=== PATIENT | female | born 1990 | race African-American/Black ===

== ENCOUNTER 2016-03-22 16:27 | Inpatient (IN) | payer MEDICAID, OTHER ==
[~2016-03-22] VITALS: Ht 152.4 cm; Wt 46.1 kg
[~2016-03-22 16:27] MED LIST: Z.0.NO CURRENT MEDS
[2016-03-22 16:29] VITALS: BP 138/74; PULSE 127; RESP 16; TEMP 99.2; O2SAT 93
[2016-03-22] MEDS ORDERED: VENTAER INH (17:21)
[2016-03-22] MEDS ORDERED: predniSONE 20 MG TAB PO ONE (17:45)
[2016-03-22] MEDS ORDERED: RESP: ALBUTEROL 2.5 MG/IPRATROPIUM 0.5 MG NEB (SCH) INH ONE (17:45)
[2016-03-22] MEDS: RESP: ALBUTEROL 2.5 MG/IPRATROPIUM 0.5 MG NEB (SCH) INH ×2 (17:50→18:01)
--- NOTE | 2016-03-22 17:51 | PD ---
HPI Chief Complaint: Respiratory Distress Time Seen by Provider: 17:51 Travel History International Travel<30 days: No Contact w/Intl Traveler<30days: No Traveled to known affect area: No History of Present Illness HPI 25-year-old female, with history of asthma, presents to the emergency department with complaint of asthma exacerbation that she cannot get under control. She has been using her albuterol inhaler with no improvement in symptoms. She reports chest tightness and shortness of breath. Reports being sick since yesterday with nasal congestion, sore throat, cough. Denies hemoptysis. Reports feeling feverish but has not taken her temperature at home. Was told that she had 102 fever in the ER. Denies lump in throat, difficulty swallowing, unusual drooling. Reports painful swallowing. Reports burning sensation in the back of her throat. Does not taken any medications or tried any other treatments to alleviate her symptoms other than her albuterol inhaler. No known allergies. History of asthma. No other modifying factors or associated signs and symptoms. PFSH Past Medical History Asthma: Yes Autoimmune Disease: No Blood Disorders: No Anxiety: No Depression: No Cardiovascular Problems: No Diminished Hearing: No Genitourinary: No Musculoskeletal: No Neurologic: No Psychiatric: No Respiratory: Yes Sickle Cell Disease: No : 1 Para: 1 Miscarriage: 0 : 0 Past Surgical History Abdominal Surgery: Yes () Section: Yes Other Surgery: No Social History Alcohol Use: No Tobacco Use: No Substance Use: No Allergies-Medications (Allergen,Severity, Reaction): Coded Allergies: No Known Allergies (Verified , 03/22/16) Reported Meds & Prescriptions Reported Meds & Active Scripts Active Reported Ventolin Hfa 18 GM Inh (Albuterol Sulfate) 90 Mcg/Act Aer 2 Puff INH Q4-6H PRN Review of Systems Except as stated in HPI: all other systems reviewed are Neg Physical Exam Narrative GENERAL: Well-nourished, well-developed patient, in no acute distress; febrile SKIN: Warm and dry. HEAD: Atraumatic. Normocephalic. EYES: Pupils equal and round. No scleral icterus. No injection or drainage. ENT: Mucosa pink and moist. Oropharynx with erythema and tonsils 1+; without exudates. No uvular edema. No uvular, palatal, or tonsillar deviation. Airway patent. Nares without nasal blood, purulent drainage or septal hematoma. EARS: Bilateral pinnae and external canals appear within normal limits. Bilateral tympanic membranes without erythema, dullness or perforation. NECK: Trachea midline. No lymphadenopathy. CARDIOVASCULAR: Tachycardic rate and rhythm 120 to 130's. No murmur appreciated. RESPIRATORY: With tachypnea approximately 30bpm and suprasternal retractions. No accessory muscle use. Lungs with diffuse Wheezing throughout to auscultation. Breath sounds equal bilaterally. With Audible wheezing noted. Unable to speak in full sentences secondary to shortness of breath. GASTROINTESTINAL: Abdomen soft, non-tender, nondistended. Hepatic and splenic margins not palpable. Bowel sounds are active 4 quadrants. MUSCULOSKELETAL: No obvious deformities. No clubbing. No cyanosis. No edema. NEUROLOGICAL: Awake and alert. Oriented 3. No obvious cranial nerve deficits. Motor grossly within normal limits. Normal speech. Moves all extremities. 5/5 strength to all extremities. PSYCHIATRIC: Appropriate mood and affect; insight and judgment normal. Data Data Last Documented VS Vital Signs Date Time Temp Pulse Resp B/P Pulse Ox O2 Delivery O2 Flow Rate FiO2 03/22/16 20:47 98.4 03/22/16 20:34 120 19 108/70 99 Room Air Orders Prednisone (Deltasone) (03/22/16 17:45) Albuterol-Ipratropium Neb (Duoneb Neb) (03/22/16 17:45) Albuterol-Ipratropium Neb (Duoneb Neb) (03/22/16 17:45) Influenzae A/B Antigen (03/22/16 17:49) Group A Rapid Strep Screen (03/22/16 17:49) Chest, Single Ap (03/22/16 18:22) Albuterol Neb (Albuterol Neb) (03/22/16 18:30) Blood Culture (03/22/16 18:27) Basic Metabolic Panel (Bmp) (03/22/16 18:27) Complete Blood Count With Diff (03/22/16 18:27) Lactic Acid (03/22/16 18:27) Iv Access Insert/Monitor (03/22/16 18:27) Ecg Monitoring (03/22/16 18:27) Oximetry (03/22/16 18:27) Sodium Chlor 0.9% 1000 Ml Inj (Ns 1000 M (03/22/16 18:27) Sodium Chloride 0.9% Flush (Ns Flush) (03/22/16 18:30) Ibuprofen (Motrin) (03/22/16 19:00) Strep Culture (Group A) (03/22/16 18:30) Azithromycin Inj (Zithromax Inj) (03/22/16 19:15) Ceftriaxone Inj (Rocephin Inj) (03/22/16 19:15) Sodium Chlor 0.9% 1000 Ml Inj (Ns 1000 M (03/22/16 19:09) Urinalysis - C+S If Indicated (03/22/16 19:19) Beta Hcg (Quant/Titer) (03/22/16 19:19) Magnesium Sulfate 1 Gm Premix (Magnesium (03/22/16 20:30) Albuterol Neb (Albuterol Neb) (03/22/16 20:30) Potassium Chloride (Kcl) (03/22/16 20:30) Acetaminophen (Tylenol) (03/22/16 20:30) Ondansetron Inj (Zofran Inj) (03/22/16 20:30) Ct Pulmonary Angiogram (03/22/16 20:24) Ct Abd/Pel W Iv Contrast(Rout) (03/22/16 20:24) Morphine Inj (Morphine Inj) (03/22/16 20:30) Hepatic Functional Panel (03/22/16 20:25) Iohexol 350 Inj (Omnipaque 350 Inj) (03/22/16 21:39) Sodium Chlor 0.9% 1000 Ml Inj (Ns 1000 M (03/22/16 22:30) Admit To Inpatient (03/22/16 ) Vital Signs (Adult) Q4H (03/22/16 22:39) Activity Oob Ad Estefanía (03/22/16 22:39) Machine Cutter / Telemetry .CONTINUOUS (03/22/16 22:39) Diet Heart Healthy (03/23/16 Breakfast) Sodium Chlor 0.9% 1000 Ml Inj (Ns 1000 M (03/22/16 22:39) Sodium Chloride 0.9% Flush (Ns Flush) (03/22/16 22:45) Sodium Chloride 0.9% Flush (Ns Flush) (03/23/16 09:00) Basic Metabolic Panel (Bmp) (03/23/16 06:00) Complete Blood Count With Diff (03/23/16 06:00) Resp Oxygen Delta C Titrat 1-4 L (03/22/16 ) Pt Request For Service (03/22/16 22:39) Enoxaparin Inj (Lovenox Inj) (03/23/16 09:00) Naloxone Inj (Narcan Inj) (03/22/16 22:45) Inpatient Certification (03/22/16 ) Ipratropium Neb (Atrovent Neb) (03/23/16 00:00) Ipratropium Neb (Atrovent Neb) (03/22/16 22:45) Admit Order (Ed Use Only) (03/22/16 22:42) Ceftriaxone Inj (Rocephin Inj) (03/23/16 20:00) Azithromycin (Zithromax) (03/23/16 09:00) Labs Laboratory Tests Test 03/22/16 03/22/16 03/22/16 03/22/16 19:15 19:24 19:25 19:45 Sodium Level 138 MEQ/L Potassium Level 2.9 MEQ/L Chloride Level 106 MEQ/L Carbon Dioxide Level 23.8 MEQ/L Anion Gap 8 MEQ/L Blood Urea Nitrogen 14 MG/DL Creatinine 0.91 MG/DL Estimat Glomerular Filtration 91 ML/MIN Rate Random Glucose 128 MG/DL Calcium Level 8.5 MG/DL Total Bilirubin 0.3 MG/DL Direct Bilirubin 0.1 MG/DL Indirect Bilirubin 0.2 MG/DL Aspartate Amino Transf 15 U/L (AST/SGOT) Alanine Aminotransferase 17 U/L (ALT/SGPT) Alkaline Phosphatase 66 U/L Total Protein 7.9 GM/DL Albumin 3.9 GM/DL Human Chorionic Gonadotropin, LESS THAN 1 Quant MIU/ML Lactic Acid Level 3.0 mmol/L White Blood Count 11.3 TH/MM3 Red Blood Count 3.55 MIL/MM3 Hemoglobin 11.0 GM/DL Hematocrit 31.7 % Mean Corpuscular Volume 89.4 FL Mean Corpuscular Hemoglobin 31.0 PG Mean Corpuscular Hemoglobin 34.6 % Concent Red Cell Distribution Width 17.0 % Platelet Count 240 TH/MM3 Mean Platelet Volume 8.4 FL Neutrophils (%) (Auto) 82.2 % Lymphocytes (%) (Auto) 8.8 % Monocytes (%) (Auto) 5.1 % Eosinophils (%) (Auto) 3.5 % Basophils (%) (Auto) 0.4 % Neutrophils # (Auto) 9.3 TH/MM3 Lymphocytes # (Auto) 1.0 TH/MM3 Monocytes # (Auto) 0.6 TH/MM3 Eosinophils # (Auto) 0.4 TH/MM3 Basophils # (Auto) 0.0 TH/MM3 CBC Comment DIFF FINAL Differential Comment Urine Color YELLOW Urine Turbidity CLEAR Urine pH 7.0 Urine Specific [place] 1.025 Urine Protein TRACE mg/dL Urine Glucose (UA) NEG mg/dL Urine Ketones 40 mg/dL Urine Occult Blood MOD Urine Nitrite NEG Urine Bilirubin NEG Urine Urobilinogen 2.0 MG/DL Urine Leukocyte Esterase NEG Urine RBC 14 /hpf Urine WBC 3 /hpf Urine Squamous Epithelial 1 /hpf Cells Urine Mucus FEW /lpf Microscopic Urinalysis Comment CULT NOT INDICATED MDM Medical Decision Making Medical Screen Exam Complete: Yes Emergency Medical Condition: Yes Medical Record Reviewed: Yes Differential Diagnosis Asthma exacerbation, influenza, strep pharyngitis, pneumonia Narrative Course 25-year-old female with history of asthma with asthma exacerbation. Patient is unable to complete full sentences secondary to shortness of breath on physical exam. She is having retractions and tachypnea. She is diaphoretic. Heart rate is 120s to 130s. Respiratory called bedside and DuoNeb 3 administered. Deltasone 40 mg by mouth administered. Influenza and rapid strep ordered. 1824: On reexamination the patient continues to be to And heart rate in the 140s. Lungs are with diffuse wheezing throughout. Patient reports continued chest tightness and shortness of breath. 1825. I spoke with Dr. Esquivel, my attending physician, and he agreed with my plan of care and recommended blood cultures, lactic acid, labs, albuterol nebulizers, and IV fluids. IV site obtained. Labs ordered. Chest x-ray ordered. Normal saline IV fluid bolus ordered. Albuterol nebulizers 3 ordered. 1849: Temp recheck 100.1. Ibuprofen ordered. 1903: Negative for influenza. Negative rapid strep. 1904: Chest x-ray concludes Minimal subsegmental air space disease at the left lung base. Azithromycin IV and Rocephin IV ordered. 1909: Dr. Esquivel updated on patient status and assumed patient care at this time. See his note for patient disposition. Diagnosis Primary Impression: Asthma with severe exacerbation Additional Impression: Pneumonia Qualified Code: J18.1 - Pneumonia of left lower lobe due to infectious organism Med/Other Pt SpecificInfo: Prescription(s) given Karissa Alonso Mar 22, 2016 17:51
[2016-03-22] MEDS ORDERED: SODIUM CHLOR 0.9% 1000 ML INJ 1,000 ML IV SCH (18:27)
[2016-03-22 18:30] VITALS: PULSE 146; RESP 26; TEMP 100.1; O2SAT 96
[2016-03-22] MEDS ORDERED: SODIUM CHLORIDE 0.9% FLUSH 5 ML FLUSH IVF PRN (18:30)
[2016-03-22] MEDS: RESP: ALBUTEROL 2.5 MG/3 ML NEB (SCH) INH ×3 (18:51→19:06)
--- NOTE | 2016-03-22 18:54 | RADRPT ---
EXAM DATE/TIME: 03/22/2016 16:32 [facility] COMPARISON: No previous studies available for comparison. INDICATIONS : Shortness of breath since last night. MEDICAL HISTORY : Asthma. SURGICAL HISTORY : None. ENCOUNTER: Initial ACUITY: 2 days PAIN SCORE: 0/10 LOCATION: Bilateral chest FINDINGS: A single view of the chest demonstrates minimal subsegmental left basilar airspace disease that could represent atelectasis or mild bronchopneumonia. Right lung clear. No effusion. No pneumothorax. Hear t size normal. CONCLUSION: 1. Minimal subsegmental air space disease at the left lung base. Don Gomez MD on March 22, 2016 at 18:51 Board Certified Radiologist. This report was verified electronically.
[2016-03-22] MEDS ORDERED: IBUPROFEN 800 MG TAB PO ONE (19:00)
[2016-03-22] MEDS ORDERED: SODIUM CHLOR 0.9% 1000 ML INJ 1,000 ML IV ONE ×2 (19:09→22:30)
[2016-03-22] MEDS ORDERED: cefTRIAXone INJ 1,000 MG in SODIUM CHLORIDE 0.9% INJ 100 ML IV ONE (19:15)
[2016-03-22] MEDS ORDERED: AZITHROMYCIN INJ 500 MG in SODIUM CHLOR 0.9% 250 ML INJ 250 ML IV ONE (19:15)
[2016-03-22 19:29] VITALS: O2SAT 97
[2016-03-22 19:30] VITALS: BP 112/63; PULSE 130; RESP 28; TEMP 101.1; O2SAT 97
[2016-03-22 19:44] LABS: AUTOMATED NEUTROPHIL # 9.3 TH/MM3 (1.8-7.7); BASOPHIL % 0.4 % (0.0-2.0); EOSINOPHIL # 0.4 TH/MM3 (0-0.4); EOSINOPHIL % 3.5 % (0.0-4.0); HEMATOCRIT 31.7 % (35.0-46.0); HEMO FLAGS DIFF FINAL; LYMPH % 8.8 % (9.0-44.0); MEAN CELL VOLUME 89.4 FL (80.0-100.0); MEAN CORPUSCULAR HGB CONC 34.6 % (32.0-36.0); MONO % 5.1 % (0.0-8.0); NEUT % 82.2 % (16.0-70.0); PLATELET COUNT 240 TH/MM3 (150-450); RED BLOOD COUNT 3.55 MIL/MM3 (4.00-5.30); WHITE BLOOD COUNT 11.3 TH/MM3 (4.0-11.0)
[2016-03-22 20:07] LABS: BLOOD, URINE MOD (NEG); COMMENT (UR) CULT NOT INDICATED; CULTURE IF INDICATED CULT NOT INDICATED; GLUCOSE,URINE NEG (NEG); KETONE, URINE 40 mg/dL (NEG); MUCUS URINE FEW /lpf (OCC); NITRITE,URINE NEG (NEG); SQUAMOUS EPITHELIAL CELL URINE 1 /hpf (0-5); URINE COLOR YELLOW (YELLW/STRAW)
[2016-03-22 20:08] LABS: BICARBONATE 23.8 MEQ/L (21.0-32.0)
[2016-03-22 20:11] LABS: POTASSIUM 2.9 MEQ/L (3.5-5.1)
--- NOTE | 2016-03-22 20:21 | PD ---
Data Data Last Documented VS Vital Signs Date Time Temp Pulse Resp B/P Pulse Ox O2 Delivery O2 Flow Rate FiO2 03/22/16 20:47 98.4 03/22/16 20:34 120 19 108/70 99 Room Air Orders Prednisone (Deltasone) (03/22/16 17:45) Albuterol-Ipratropium Neb (Duoneb Neb) (03/22/16 17:45) Albuterol-Ipratropium Neb (Duoneb Neb) (03/22/16 17:45) Influenzae A/B Antigen (03/22/16 17:49) Group A Rapid Strep Screen (03/22/16 17:49) Chest, Single Ap (03/22/16 18:22) Albuterol Neb (Albuterol Neb) (03/22/16 18:30) Blood Culture (03/22/16 18:27) Basic Metabolic Panel (Bmp) (03/22/16 18:27) Complete Blood Count With Diff (03/22/16 18:27) Lactic Acid (03/22/16 18:27) Iv Access Insert/Monitor (03/22/16 18:27) Ecg Monitoring (03/22/16 18:27) Oximetry (03/22/16 18:27) Sodium Chlor 0.9% 1000 Ml Inj (Ns 1000 M (03/22/16 18:27) Sodium Chloride 0.9% Flush (Ns Flush) (03/22/16 18:30) Ibuprofen (Motrin) (03/22/16 19:00) Strep Culture (Group A) (03/22/16 18:30) Azithromycin Inj (Zithromax Inj) (03/22/16 19:15) Ceftriaxone Inj (Rocephin Inj) (03/22/16 19:15) Sodium Chlor 0.9% 1000 Ml Inj (Ns 1000 M (03/22/16 19:09) Urinalysis - C+S If Indicated (03/22/16 19:19) Beta Hcg (Quant/Titer) (03/22/16 19:19) Magnesium Sulfate 1 Gm Premix (Magnesium (03/22/16 20:30) Albuterol Neb (Albuterol Neb) (03/22/16 20:30) Potassium Chloride (Kcl) (03/22/16 20:30) Acetaminophen (Tylenol) (2/7/17 20:30) Ondansetron Inj (Zofran Inj) (03/22/16 20:30) Ct Pulmonary Angiogram (03/22/16 20:24) Ct Abd/Pel W Iv Contrast(Rout) (03/22/16 20:24) Morphine Inj (Morphine Inj) (03/22/16 20:30) Hepatic Functional Panel (03/22/16 20:25) Iohexol 350 Inj (Omnipaque 350 Inj) (03/22/16 21:39) Sodium Chlor 0.9% 1000 Ml Inj (Ns 1000 M (03/22/16 22:30) Labs Laboratory Tests Test 03/22/16 03/22/16 03/22/16 03/22/16 19:15 19:24 19:25 19:45 Sodium Level 138 MEQ/L Potassium Level 2.9 MEQ/L Chloride Level 106 MEQ/L Carbon Dioxide Level 23.8 MEQ/L Anion Gap 8 MEQ/L Blood Urea Nitrogen 14 MG/DL Creatinine 0.91 MG/DL Estimat Glomerular Filtration 91 ML/MIN Rate Random Glucose 128 MG/DL Calcium Level 8.5 MG/DL Human Chorionic Gonadotropin, LESS THAN 1 Quant MIU/ML Lactic Acid Level 3.0 mmol/L White Blood Count 11.3 TH/MM3 Red Blood Count 3.55 MIL/MM3 Hemoglobin 11.0 GM/DL Hematocrit 31.7 % Mean Corpuscular Volume 89.4 FL Mean Corpuscular Hemoglobin 31.0 PG Mean Corpuscular Hemoglobin 34.6 % Concent Red Cell Distribution Width 17.0 % Platelet Count 240 TH/MM3 Mean Platelet Volume 8.4 FL Neutrophils (%) (Auto) 82.2 % Lymphocytes (%) (Auto) 8.8 % Monocytes (%) (Auto) 5.1 % Eosinophils (%) (Auto) 3.5 % Basophils (%) (Auto) 0.4 % Neutrophils # (Auto) 9.3 TH/MM3 Lymphocytes # (Auto) 1.0 TH/MM3 Monocytes # (Auto) 0.6 TH/MM3 Eosinophils # (Auto) 0.4 TH/MM3 Basophils # (Auto) 0.0 TH/MM3 CBC Comment DIFF FINAL Differential Comment Urine Color YELLOW Urine Turbidity CLEAR Urine pH 7.0 Urine Specific [place] 1.025 Urine Protein TRACE mg/dL Urine Glucose (UA) NEG mg/dL Urine Ketones 40 mg/dL Urine Occult Blood MOD Urine Nitrite NEG Urine Bilirubin NEG Urine Urobilinogen 2.0 MG/DL Urine Leukocyte Esterase NEG Urine RBC 14 /hpf Urine WBC 3 /hpf Urine Squamous Epithelial 1 /hpf Cells Urine Mucus FEW /lpf Microscopic Urinalysis Comment CULT NOT INDICATED MDM Supervised Visit with SHAHRIAR: Yes Narrative Course I, Dr. Esquivel, have reviewed the advance practice practitioner's documentation and am in agreement, met with the patient face to face, made the diagnosis, and the medical decision making was done by me. See her note for further details. This is a 25-year-old female with history of asthma who was initially brought to [facility] for evaluation of shortness of breath/asthma exacerbation. She was treated by my nurse practitioner with 3 DuoNeb treatments and oral prednisone. The patient's symptoms did not improve and she was given 3 more albuterol treatments. She was noted to be febrile, so labs, influenza, and chest x-ray were ordered. Upon my assessment of the patient she was receiving her third albuterol treatment and was still wheezing. She did however state that she was feeling a lot better than when she first arrived. Initial vital signs show heart rate 127, blood pressure 138/74, pulse ox 93% on room air, oral temp of 99.2F. CBC is remarkable for WBC 11.3, hemoglobin 11, hematocrit 31.7, platelets 240, neutrophils 82%. BMP is remarkable for potassium 2.9 which was replaced orally. Lactic acid is 3.0. Urine shows 40 ketones, moderate occult blood, not suggestive of UTI. Chest x-ray shows minimal subsegmental airspace disease at the left lung base. Influenza is negative. Patient was made aware of all findings and although is feeling better, is still wheezing. She was given 2 L of normal saline, however her heart rate remains elevated in the 120s. She was also given IV Rocephin and azithromycin. She will be admitted for further treatment and evaluation of bronchopneumonia, asthma exacerbation. 8:20 PM: After a call was placed to have the patient admitted, she had an episode of vomiting, and afterwards started to complain of severe right upper quadrant abdominal pain that is sharp. She is mildly tender in this area. She remains tachycardic. CT pulmonary angiogram ordered to rule out PE as well as CT abdomen pelvis to rule out an intra-abdominal infection. CT pulmonary angiogram: CONCLUSION: 1. Negative for pulmonary embolus. 2. Mild groundglass opacity anterior segment right upper lobe most characteristic of a mild bronchopneumonia. 3. Mucoid impaction in several lower lobe bronchi on the right with peribronchial thickening and some mild cylindrical bronchiectasis. Findings are likely infectious in nature. CT abdomen pelvis: No acute findings identified within the abdomen and pelvis. Again the patient was given IV Rocephin and azithromycin. Blood cultures sent prior to antibiotic administration. She will be admitted for further treatment and evaluation of sepsis, asthma exacerbation, bronchopneumonia. Case discussed with hospitalist Dr. Rivera who will admit the patient to her service. Critical Care Narrative Aggregate critical care time was 35 minutes. Time to perform other separately billable procedures was not included in the critical care time. My time did not include minutes spent treating any other patients simultaneously or on activities that did not directly contribute to the patient's treatment. The services I provided to this patient were to treat and/or prevent clinically significant deterioration that could result in: , permanent disability, respiratory failure, worsening clinical condition, septic shock I provided critical care services requiring my management, as noted below: Chart data review, documentation time, medication orders and management, vital sign assessments/reviewing monitor data, ordering and reviewing lab tests, ordering and interpreting/reviewing x-rays and diagnostic studies, care of the patient and discussion of the patient with the admitting physicians. Diagnosis Primary Impression: Sepsis Qualified Code: A41.9 - Sepsis, due to unspecified organism Additional Impressions: Asthma with severe exacerbation Bronchopneumonia Admitting Information Admitting Physician Requests: Admit Jonathon Esquivel MD Mar 22, 2016 20:21
[2016-03-22] MEDS ORDERED: RESP: ALBUTEROL 2.5 MG/3 ML NEB (SCH) INH ONE (20:30)
[2016-03-22] MEDS ORDERED: ONDANSETRON HCL 4 MG/2 ML VIAL IV PUSH ONE (20:30)
[2016-03-22] MEDS ORDERED: ACETAMINOPHEN 325 MG TAB PO ONE (20:30)
[2016-03-22] MEDS ORDERED: MORPHINE SULFATE 4 MG/ML INJ IV PUSH ONE (20:30)
[2016-03-22] MEDS ORDERED: POTASSIUM CHLORIDE 20 MEQ CONTROLLED RELEASE TAB PO ONE (20:30)
[2016-03-22 20:34] VITALS: BP 108/70; PULSE 120; RESP 19; O2SAT 99
[2016-03-22 20:47] VITALS: TEMP 98.4
[2016-03-22 20:50] LABS: BETA HCG QUANT LESS THAN 1 MIU/ML (0-5)
[2016-03-22] MEDS: MAGNESIUM SULFATE 1 GM PREMIX 100 ML IV SCH ×2 (21:24→23:04)
[2016-03-22] MEDS ORDERED: IOHEXOL 350 MG/ML 10 ML VIAL (for RAD DIAG) IV ONE (21:39)
--- NOTE | 2016-03-22 22:21 | RADRPT ---
EXAM DATE/TIME: 03/22/2016 21:32 [facility] COMPARISON: No previous studies available for comparison. INDICATIONS : Shortness of breath and lower right chest pain. IV CONTRAST: 70 cc Omnipaque 350 (iohexol) IV ; Cumulative dose for multiple exams. RADIATION DOSE: 21.26 CTDIvol (mGy) MEDICAL HISTORY : Asthma. SURGICAL HISTORY : None. ENCOUNTER: Initial ACUITY: 1 day PAIN SCALE: 6/10 LOCATION: Right lower chest TECHNIQUE: Volumetric scanning of the chest was performed using a pulmonary embolism protocol MIP images were re constructed. Using automated exposure control and adjustment of the mA and/or kV according to patien t size, radiation dose was kept as low as reasonably achievable to obtain optimal diagnostic quality images. FINDINGS: No filling defects in the pulmonary arteries to suggest pulmonary embolus. There is some groundglass opacity in the anterior aspect of the right upper lobe most characteristic of a mild bronchopneumonia . Also minimal ground glass opacity left upper lobe. In the right lower lobe segmental bronchi there is peribronchial thickening and scattered mucoid plugging of the airways. This is probably infectious in nature. There is also mild cylindrical bronchiectasis No pleural or pericardial effusion. No adenopathy. No acute findings in the upper abdomen. CONCLUSION: 1. Negative for pulmonary embolus. 2. Mild groundglass opacity anterior segment right upper lobe most characteristic of a mild bronchopn eumonia. 3. Mucoid impaction in several lower lobe bronchi on the right with peribronchial thickening and some mild cylindrical bronchiectasis. Findings are likely infectious in nature. Don Gomez MD on March 22, 2016 at 22:14 Board Certified Radiologist. This report was verified electronically.
--- NOTE | 2016-03-22 22:28 | RADRPT ---
EXAM DATE/TIME: 03/22/2016 21:32 [facility] COMPARISON: No previous studies available for comparison. INDICATIONS : Shortness of breath and right lower chest pain. IV CONTRAST: 70 cc Omnipaque 350 (iohexol) IV ; Cumulative dose for multiple exams. ORAL CONTRAST: No oral contrast ingested. RADIATION DOSE: 4.52 CTDIvol (mGy) MEDICAL HISTORY : Asthma. SURGICAL HISTORY : None. ENCOUNTER: Initial ACUITY: 1 day PAIN SCALE: 6/10 LOCATION: Right lower chest TECHNIQUE: Volumetric scanning of the abdomen and pelvis was performed. Using automated exposure control and ad justment of the mA and/or kV according to patient size, radiation dose was kept as low as reasonably achievable to obtain optimal diagnostic quality images. FINDINGS: See chest CT for evaluation of lung bases. No acute findings in the liver, spleen, adrenals, kidneys or pancreas. No calcified gallstones or elin iary ductal dilatation. No bowel obstruction. No free air or free fluid. No acute bony abnormalities. CONCLUSION: 1. No acute findings identified within the abdomen and pelvis. Don Gomez MD on March 22, 2016 at 22:22 Board Certified Radiologist. This report was verified electronically.
[2016-03-22 22:45] LABS: INDIRECT BILIRUBIN 0.2 MG/DL (0.0-0.8); TOTAL BILIRUBIN ADULT 0.3 MG/DL (0.2-1.0)
[2016-03-22] MEDS ORDERED: RESP: IPRATROPIUM 0.5 MG/2.5 ML NEB NEB PRN (22:45)
[2016-03-22] MEDS ORDERED: NALOXONE HCL 0.4 MG/ML AMP IV PRN (22:45)
[2016-03-22] MEDS ORDERED: SODIUM CHLORIDE 0.9% FLUSH 5 ML FLUSH FLUSH PRN (22:45)
[2016-03-22] MEDS: RESP: IPRATROPIUM 0.5 MG/2.5 ML NEB NEB SCH (23:48)
[2016-03-23] VITALS (9 sets, daily range): BP systolic 102–117; BP diastolic 55–75; PULSE 82–109; RESP 17–24; TEMP 98.3–99; O2SAT 96–100
[2016-03-23] MEDS: SODIUM CHLOR 0.9% 1000 ML INJ 1,000 ML IV SCH ×3 (01:42→20:09)
--- NOTE | 2016-03-23 02:41 | HHI.HP ---
[facility] No Primary Care Physician Admission Diagnosis sepsis, bronchopneumonia, asthma exacerbation Diagnoses: Chief Complaint: shortness of breath Travel History International Travel<30 Days: No Contact w/Intl Traveler <30 Da: No Traveled to Known Affected Are: No History of Present Illness hx from patient, ER communication and review of medical records reports came to hospital because she thought her asthma was acting up denies fever at home denies nausea/vomiting/diarrhea/urinary burning or pain on urination denies blood in stool or urine In the emergency room, patient was found to have fever 101 She was also tachycardic with leukocytosis. Denies being on steroids at home. She did however received multiple rounds of nebulizers. Patient reports that she usually uses her inhalers once every few months. She was in hospital for asthma exacerbation and ER visits only about once a year or so. Never been intubated. Is not on any control inhale steroids. Her asthma is pretty well controlled with just inhaled bronchodilators. Review of Systems Other 10 point review of systems obtained and negative apart from what is mentioned in HPI Past Family Social History Past Medical History Asthma Past Surgical History Reported Medications MDI albuterol Allergies: Coded Allergies: No Known Allergies (Verified , 03/22/16) Family History Reports of history of breast cancer in her mother, aunts multiple aunts. Also reports of history of ovarian cancer and some of her aunts and cervical cancer in the mother. Social History Denies smoking/alcohol abuse/drug abuse. Physical Exam Vital Signs Vital Signs Date Time Temp Pulse Resp B/P Pulse Ox O2 Delivery O2 Flow Rate FiO2 03/22/16 20:47 98.4 03/22/16 20:34 120 19 108/70 99 Room Air 03/22/16 19:30 101.1 130 28 112/63 97 Room Air 03/22/16 19:29 97 Room Air 03/22/16 18:30 100.1 146 26 96 Room Air 03/22/16 17:21 93 Room Air 03/22/16 16:29 99.2 127 16 138/74 93 Room Air Physical Exam GENERAL: This is a well-nourished, well-developed patient, in no apparent distress. SKIN: No rashes, ecchymoses or lesions. HEAD: Atraumatic. Normocephalic. No temporal or scalp tenderness. EYES: No scleral icterus. No injection or drainage. ENT: Nose without bleeding, purulent drainage or septal hematoma. Airway patent. NECK: Trachea midline. No JVD CARDIOVASCULAR: Regular rate and rhythm without murmurs, gallops, or rubs. RESPIRATORY: bilateral expiratory wheezing GASTROINTESTINAL: Abdomen soft, non-tender, nondistended. No guarding. MUSCULOSKELETAL: Extremities without clubbing, cyanosis, or edema. No calf tenderness. NEUROLOGICAL: Awake and alert. Motor and sensory grossly within normal limits. Normal speech. Laboratory Laboratory Tests Test 03/22/16 03/22/16 03/22/16 03/22/16 19:15 19:24 19:25 19:45 Sodium Level 138 Potassium Level 2.9 Chloride Level 106 Carbon Dioxide Level 23.8 Anion Gap 8 Blood Urea Nitrogen 14 Creatinine 0.91 Estimat Glomerular Filtration 91 Rate Random Glucose 128 Calcium Level 8.5 Total Bilirubin 0.3 Direct Bilirubin 0.1 Indirect Bilirubin 0.2 Aspartate Amino Transf 15 (AST/SGOT) Alanine Aminotransferase 17 (ALT/SGPT) Alkaline Phosphatase 66 Total Protein 7.9 Albumin 3.9 Human Chorionic Gonadotropin, LESS THAN 1 Quant Lactic Acid Level 3.0 White Blood Count 11.3 Red Blood Count 3.55 Hemoglobin 11.0 Hematocrit 31.7 Mean Corpuscular Volume 89.4 Mean Corpuscular Hemoglobin 31.0 Mean Corpuscular Hemoglobin 34.6 Concent Red Cell Distribution Width 17.0 Platelet Count 240 Mean Platelet Volume 8.4 Neutrophils (%) (Auto) 82.2 Lymphocytes (%) (Auto) 8.8 Monocytes (%) (Auto) 5.1 Eosinophils (%) (Auto) 3.5 Basophils (%) (Auto) 0.4 Neutrophils # (Auto) 9.3 Lymphocytes # (Auto) 1.0 Monocytes # (Auto) 0.6 Eosinophils # (Auto) 0.4 Basophils # (Auto) 0.0 CBC Comment DIFF FINAL Differential Comment Urine Color YELLOW Urine Turbidity CLEAR Urine pH 7.0 Urine Specific [place] 1.025 Urine Protein TRACE Urine Glucose (UA) NEG Urine Ketones 40 Urine Occult Blood MOD Urine Nitrite NEG Urine Bilirubin NEG Urine Urobilinogen 2.0 Urine Leukocyte Esterase NEG Urine RBC 14 Urine WBC 3 Urine Squamous Epithelial 1 Cells Urine Mucus FEW Microscopic Urinalysis Comment CULT NOT INDICATED Date/Time Procedure Status Source Growth 03/22/16 19:25 Aerobic Blood Culture Received Blood Peripheral Pending 03/22/16 19:25 Anaerobic Blood Culture Received Blood Peripheral Pending 03/22/16 18:30 Influenza Types A,B Antigen (ALBER) - Final Complete Nasal Aspirate NEGATIVE FOR FLU A AND B ANTIGEN.... 03/22/16 18:30 Group A Streptococcus Screen (ALBER) - Final Complete Throat 03/22/16 18:30 Group A Streptococcus Screen Received Throat Pending Result Diagram: 03/22/16 19203/22/16 191 Imaging Last [address] Angiography 03/22/162023 Signed Impressions: Service Date/Time: Tuesday, March 22, 2016 21:32 - CONCLUSION: 1. Negative for pulmonary embolus. 2. Mild groundglass opacity anterior segment right upper lobe most characteristic of a mild bronchopneumonia. 3. Mucoid impaction in several lower lobe bronchi on the right with peribronchial thickening and some mild cylindrical bronchiectasis. Findings are likely infectious in nature. Don Gomez MD Abdomen/Pelvis CT 03/22/162023 Signed Impressions: Service Date/Time: Tuesday, March 22, 2016 21:32 - CONCLUSION: 1. No acute findings identified within the abdomen and pelvis. Don Gomez MD Chest X-Ray 03/22/161821 Signed Impressions: Service Date/Time: Tuesday, March 22, 2016 16:32 - CONCLUSION: 1. Minimal subsegmental air space disease at the left lung base. Don Gomez MD Assessment and Plan Problem List: (1) Sepsis ICD Code: A41.9 Status: Acute (2) Pneumonia ICD Code: J18.9 Status: Acute (3) Asthma with severe exacerbation ICD Code: J45.901 Status: Acute Assessment and Plan Impression: Pneumonia Sepsissecondary to pneumonia Asthma exacerbation Abdominal painlikely due to multiple episodes of cough. CT abdomen negative for any acute pathology. Leukocytosis with left shift Hypokalemiafrom multiple rounds of beta agonist use Plan: We'll follow blood culture results. Solu-Medrol 40 mg IV every 6 hours. Nebulizers scheduled and when necessary. Switched to Atrovent nebulizers due to tachycardia. Patient received Rocephin and azithromycin in ER. We'll continue same. Replaced potassium total of 40 mEq and magnesium sulfate 1 g IV. Repeat labs in a.m. DVT prophylaxiswith Lovenox. GI prophylaxison pantoprazole. Patient is counseled in detail regarding the need to test for genetics/BRCA genes for breast/ovarian cancers since multiple members in her family has these type of cancers. Discussed Condition With Patient, ER physician Physician Certification 2 Midnight Certification Type: Admission for Inpatient Services Order for Inpatient Services The services are ordered in accordance with Medicare regulations or non- Medicare payer requirements, as applicable. In the case of services not specified as inpatient-only, they are appropriately provided as inpatient services in accordance with the 2-midnight benchmark. Estimated LOS (days): 2 days is the estimated time the patient will need to remain in the hospital, assuming treatment plan goals are met and no additional complications. Post-Hospital Plan: Home Problem Qualifiers (1) Sepsis: Qualified Code: A41.9 - Sepsis, due to unspecified organism (2) Pneumonia: Qualified Code: J18.1 - Pneumonia of left lower lobe due to infectious organism Josafat Rivera MD Mar 23, 2016 02:41
[2016-03-23] MEDS: RESP: IPRATROPIUM 0.5 MG/2.5 ML NEB NEB SCH ×2 (03:42→07:28)
[2016-03-23 04:35] LABS: AUTOMATED NEUTROPHIL # 10.7 TH/MM3 (1.8-7.7); BASOPHIL % 0.2 % (0.0-2.0); HEMO FLAGS DIFF FINAL; LYMPH % 5.8 % (9.0-44.0); LYMPHOCYTE # 0.7 TH/MM3 (1.0-4.8); MEAN CELL VOLUME 91.2 FL (80.0-100.0); MEAN CORPUSCULAR HEMOGLOBIN 30.3 PG (27.0-34.0); MEAN CORPUSCULAR HGB CONC 33.2 % (32.0-36.0); MONO % 2.7 % (0.0-8.0); NEUT % 91.3 % (16.0-70.0); PLATELET COUNT 233 TH/MM3 (150-450); RED BLOOD COUNT 3.08 MIL/MM3 (4.00-5.30); RED CELL DISTRIBUTION WIDTH 17.1 % (11.6-17.2); WHITE BLOOD COUNT 11.7 TH/MM3 (4.0-11.0)
[2016-03-23 05:06] LABS: BICARBONATE 18.6 MEQ/L (21.0-32.0); POTASSIUM 4.6 MEQ/L (3.5-5.1)
[2016-03-23] MEDS: methylPREDNISolone SOD SUCC 40 MG/1 ML VIAL IV PUSH SCH ×3 (06:05→17:36)
[2016-03-23] MEDS: IBUPROFEN 400 MG TAB PO PRN (06:06)
[2016-03-23] MEDS: ENOXAPARIN SODIUM 40 MG/0.4 ML SYRINGE SQ SCH (08:33)
[2016-03-23] MEDS: PANTOPRAZOLE SOD 40 MG DELAYED RELEASE TAB PO SCH (08:33)
[2016-03-23] MEDS ORDERED: SODIUM CHLORIDE 0.9% FLUSH 5 ML FLUSH FLUSH SCH (09:00)
[2016-03-23] MEDS ORDERED: RESP: ALBUTEROL 2.5 MG/IPRATROPIUM 0.5 MG NEB (PRN) NEB (09:30)
[2016-03-23] MEDS ORDERED: SODIUM CHLORIDE 0.9% FLUSH 5 ML FLUSH IV PRN (09:30)
--- NOTE | 2016-03-23 09:35 | HHI.PR ---
Subjective Remarks Reports still wheezing. No further fevers or chills. Patient is not actively short of breath. When she is feeling well she only uses an albuterol as needed inhaler. She does have a nebulizer machine and albuterol nebs at home. She states that she has been around sick contacts with her family at home. She has not received her flu shot during the season. She reports no significant sputum production. She reports on and off epigastric discomfort with which she describes as a sharp pain. At times radiating towards the right upper abdomen area. She states that this is not worse with coughing or taking a deep breath. She states that this is not changed with food intake. Objective Vitals Vital Signs Date Time Temp Pulse Resp B/P Pulse Ox O2 Delivery O2 Flow Rate FiO2 03/23/16 08:15 99.0 92 20 112/75 98 Room Air 21 03/23/16 07:30 Room Air 21 03/23/16 07:29 96 21 03/23/16 06:00 82 18 103/69 97 Room Air 03/22/16 20:47 98.4 03/22/16 20:34 120 19 108/70 99 Room Air 03/22/16 19:30 101.1 130 28 112/63 97 Room Air 03/22/16 19:29 97 Room Air 03/22/16 18:30 100.1 146 26 96 Room Air 03/22/16 17:21 93 Room Air 03/22/16 16:29 99.2 127 16 138/74 93 Room Air I/O 03/22/16 03/22/16 03/22/16 03/23/16 03/23/16 03/23/16 07:00 15:00 23:00 07:00 15:00 23:00 Intake Total 480 ml Output Total 100 ml Balance -100 ml 480 ml Intake Oral 480 ml Output Emesis 100 ml Result Diagram: 03/23/16 0354 03/23/16 0354 Other Results Item Value Date Time Lactic Acid Level 3.0 mmol/L H 03/22/161923 Imaging Last Impressions CT Angiography 03/22/162023 Signed Impressions: Service Date/Time: Tuesday, March 22, 2016 21:32 - CONCLUSION: 1. Negative for pulmonary embolus. 2. Mild groundglass opacity anterior segment right upper lobe most characteristic of a mild bronchopneumonia. 3. Mucoid impaction in several lower lobe bronchi on the right with peribronchial thickening and some mild cylindrical bronchiectasis. Findings are likely infectious in nature. Don Gomez MD Abdomen/Pelvis CT 03/22/162023 Signed Impressions: Service Date/Time: Tuesday, March 22, 2016 21:32 - CONCLUSION: 1. No acute findings identified within the abdomen and pelvis. Don Gomez MD Chest X-Ray 03/22/161821 Signed Impressions: Service Date/Time: Tuesday, March 22, 2016 16:32 - CONCLUSION: 1. Minimal subsegmental air space disease at the left lung base. Don Gomez MD Objective Remarks GENERAL: This is a well-nourished, well-developed patient, in no apparent distress. CARDIOVASCULAR: Regular rate and rhythm without murmurs, gallops, or rubs. RESPIRATORY: Diffuse expiratory wheezes bilaterally. GASTROINTESTINAL: Abdomen soft, non-tender,nondistended. Normal active bowel sounds MUSCULOSKELETAL: Extremities without clubbing, cyanosis, or edema. NEURO: Alert & Oriented x4 to person, place, time, situation. Moves all ext x4 A/P Problem List: (1) Severe sepsis with acute organ dysfunction ICD Code: A41.9 Status: Acute (2) Pneumonia ICD Code: J18.9 Status: Acute (3) Asthma with severe exacerbation ICD Code: J45.901 Status: Acute Assessment and Plan Severe sepsis due to community-acquired pneumonia in the left lower lobe causing acute asthma exacerbation. Patient presented with tachycardia and tachypnea with suspected lung infection with resulting lactic acid 3.0 and awaiting repeat lactic acid. IVF hydration, bolus, and antibiotics given. Follow-up with blood cultures. Community-acquired Pneumoniacontinue with IV Rocephin and Zithromax, follow-up blood cultures Asthma exacerbationcontinue with bronchodilators, doing them treatments, steroids, oxygen support as needed. Abdominal painlikely due to multiple episodes of cough. CT abdomen negative for any acute pathology. Hepatic function tests negative Hypokalemiafrom multiple rounds of beta agonist use, repleted and check a magnesium level. Keep on telemetry for the next 24 hours due to sepsis and hypokalemia and reevaluate for telemetry use in the morning. DVT prophylaxisLovenox Discharge Planning Home when clinically stable. Problem Qualifiers (1) Pneumonia: Qualified Code: J18.1 - Pneumonia of left lower lobe due to infectious organism Renu Tran MD Mar 23, 2016 09:34
[2016-03-23] MEDS: RESP: ALBUTEROL 2.5 MG/IPRATROPIUM 0.5 MG NEB (SCH) NEB ×3 (11:36→19:53)
[2016-03-23] MEDS ORDERED: guaiFENesin/CODEINE SYRUP 200 MG/20 MG/10 ML CUP PO PRN (18:30)
[2016-03-23] MEDS ORDERED: NALOXONE HCL 0.4 MG/ML AMP IV PRN (18:30)
[2016-03-23] MEDS: ACETAMINOPHEN/HYDROcodone 325 MG/5 MG TAB PO PRN (19:38)
[2016-03-23] MEDS ORDERED: AZITHROMYCIN 250 MG TAB PO SCH (20:00)
[2016-03-23] MEDS ORDERED: cefTRIAXone INJ 1,000 MG in SODIUM CHLORIDE 0.9% INJ 100 ML IV SCH (20:00)
[2016-03-23] MEDS: SODIUM CHLORIDE 0.9% FLUSH 5 ML FLUSH IV SCH (21:00)
[2016-03-24] VITALS (9 sets, daily range): BP systolic 99–114; BP diastolic 56–59; PULSE 86–127; RESP 20; TEMP 97.5–98.7; O2SAT 98–100
[2016-03-24] MEDS: methylPREDNISolone SOD SUCC 40 MG/1 ML VIAL IV PUSH SCH ×3 (00:07→11:19)
[2016-03-24] MEDS: RESP: ALBUTEROL 2.5 MG/IPRATROPIUM 0.5 MG NEB (SCH) NEB ×3 (04:08→11:39)
[2016-03-24] MEDS: ACETAMINOPHEN/HYDROcodone 325 MG/5 MG TAB PO PRN (04:56)
[2016-03-24] MEDS: ENOXAPARIN SODIUM 40 MG/0.4 ML SYRINGE SQ SCH (08:23)
[2016-03-24] MEDS: PANTOPRAZOLE SOD 40 MG DELAYED RELEASE TAB PO SCH (08:23)
[2016-03-24] MEDS: SODIUM CHLORIDE 0.9% FLUSH 5 ML FLUSH IV SCH (08:23)
[2016-03-24] MEDS: IBUPROFEN 400 MG TAB PO PRN (11:21)
[2016-03-24] MEDS: SODIUM CHLOR 0.9% 1000 ML INJ 1,000 ML IV SCH (11:32)
[2016-03-24] MEDS ORDERED: ALBU0.08 NEB (11:35)
[2016-03-24] MEDS ORDERED: PRED20 PO (11:35)
[2016-03-24] MEDS ORDERED: AZIT500T2 PO (11:35)
[2016-03-24] MEDS ORDERED: CEFT500T3 PO (11:35)
[2016-03-24] MEDS ORDERED: VENTAER INH (11:35)
--- NOTE | 2016-03-24 11:37 | HHI.DCPOC ---
Discharge Care Plan Diagnosis: (1) Severe sepsis with acute organ dysfunction (2) Asthma with severe exacerbation Your Health Problems Are: Inflammation Shortness of Breath Goals to Promote Your Health * To prevent worsening of your condition and complications * To maintain your health at the optimal level Directions to Meet Your Goals Take your medications as prescribed Follow your dietary instruction Follow activity as directed Complete your antibiotics Continue nebulizer breathing treatments Keep your appointments as scheduled Take your immunizations and boosters as scheduled If your symptoms worsen call your PCP, if no PCP go to Urgent Care Center or Emergency Room Smoking is Dangerous to Your Health. Avoid second hand smoke Call the 24-hour hour crisis hotline for domestic abuse at Renu Tran MD Mar 24, 2016 11:37
--- NOTE | 2016-03-24 11:42 | HHI.DS ---
Discharge Summary Admission Date Mar 22, 2016 at 22:43 Discharge Date: Mar 24, 2016 Admitting Diagnosis sepsis, bronchopneumonia, asthma exacerbation (1) Severe sepsis with acute organ dysfunction ICD Code: A41.9 Diagnosis: Principal (2) Pneumonia ICD Code: J18.9 Diagnosis: Secondary (3) Asthma with severe exacerbation ICD Code: J45.901 Diagnosis: Secondary Procedures none Brief History - From Admission 25-year-old female presents emergency room due to increased shortness of breath and her asthma was acting up. She also was found to have a fever 101 emergency room and tachycardic with leukocytosis. She has not been once steroids previously. She has been using her home nebulizer treatments with continued shortness of breath and therefore came to the emergency room. CBC/BMP: 03/23/16 0354 03/23/16 0354 Significant Findings Laboratory Tests Test 03/22/16 03/22/16 03/22/16 03/22/16 19:15 19:24 19:25 19:45 Potassium Level 2.9 MEQ/L (3.5-5.1) Random Glucose 128 MG/DL (74-106) Lactic Acid Level 3.0 mmol/L (0.4-2.0) White Blood Count 11.3 TH/MM3 (4.0-11.0) Red Blood Count 3.55 MIL/MM3 (4.00-5.30) Hemoglobin 11.0 GM/DL (11.6-15.3) Hematocrit 31.7 % (35.0-46.0) Neutrophils (%) (Auto) 82.2 % (16.0-70.0) Lymphocytes (%) (Auto) 8.8 % (9.0-44.0) Neutrophils # (Auto) 9.3 TH/MM3 (1.8-7.7) Urine Ketones 40 mg/dL (NEG) Urine Occult Blood MOD (NEG) Urine RBC 14 /hpf (0-3) Urine Mucus FEW /lpf (OCC) Test 03/23/16 03:54 White Blood Count 11.7 TH/MM3 (4.0-11.0) Red Blood Count 3.08 MIL/MM3 (4.00-5.30) Hemoglobin 9.3 GM/DL (11.6-15.3) Hematocrit 28.0 % (35.0-46.0) Neutrophils (%) (Auto) 91.3 % (16.0-70.0) Lymphocytes (%) (Auto) 5.8 % (9.0-44.0) Neutrophils # (Auto) 10.7 TH/MM3 (1.8-7.7) Lymphocytes # (Auto) 0.7 TH/MM3 (1.0-4.8) Chloride Level 112 MEQ/L (98-107) Carbon Dioxide Level 18.6 MEQ/L (21.0-32.0) Blood Urea Nitrogen 6 MG/DL (7-18) Calcium Level 7.7 MG/DL (8.5-10.1) Magnesium Level 2.8 MG/DL (1.5-2.5) Imaging Last Impressions CT Angiography 03/22/162023 Signed Impressions: Service Date/Time: Tuesday, March 22, 2016 21:32 - CONCLUSION: 1. Negative for pulmonary embolus. 2. Mild groundglass opacity anterior segment right upper lobe most characteristic of a mild bronchopneumonia. 3. Mucoid impaction in several lower lobe bronchi on the right with peribronchial thickening and some mild cylindrical bronchiectasis. Findings are likely infectious in nature. Don Gomez MD Abdomen/Pelvis CT 03/22/162023 Signed Impressions: Service Date/Time: Tuesday, March 22, 2016 21:32 - CONCLUSION: 1. No acute findings identified within the abdomen and pelvis. Don Gomez MD Chest X-Ray 03/22/161821 Signed Impressions: Service Date/Time: Tuesday, March 22, 2016 16:32 - CONCLUSION: 1. Minimal subsegmental air space disease at the left lung base. Don Gomez MD PE at Discharge GENERAL: This is a well-nourished, well-developed patient, in no apparent distress. CARDIOVASCULAR: Regular rate and rhythm without murmurs, gallops, or rubs. RESPIRATORY: Diminished breath sounds bilaterally relatively clear to auscultation bilaterally GASTROINTESTINAL: Abdomen soft, non-tender,nondistended. Normal active bowel sounds MUSCULOSKELETAL: Extremities without clubbing, cyanosis, or edema. NEURO: Alert & Oriented x4 to person, place, time, situation. Moves all ext x4 Pt update on day of discharge Patient states that she is feeling better. She is not actively short of breath. She is able to walk to the bathroom without oxygen. She wants to try to go home and take these medications orally. Hospital Course 25-year-old female was admitted for severe sepsis due to community acquired pneumonia with asthma exacerbation. She responded well with IV fluid hydration, supportive care, IV Rocephin and Zithromax. Her asthma exacerbation also responded well to steroid treatment with IV Solu-Medrol along with bronchodilators. She was able to be weaned off of oxygen and transition to oral steroids, antibiotics and continued supportive care with home nebulizer treatments. At this time, patient gained maximum benefit from hospitalization strain to be discharged to home Pt Condition on Discharge: Good Discharge Disposition: Discharge Home Discharge Time: <= 30 minutes Discharge Instructions DIET: Follow Instructions for: As Tolerated, No Restrictions Activities you can perform: Regular-No Restrictions Follow up Referrals: PCP Follow-up - 1 Week New Medications: Albuterol 18 GM Inh (Ventolin Hfa 18 GM Inh) 90 Mcg/Act Aer 2 PUFF INH Q4H PRN SHORTNESS OF BREATH #1 Ref 0 INHALER Albuterol Neb (Albuterol Neb) 2.5 Mg/3 Ml Neb 2.5 MG NEB Q4HR NEB PRN SHORTNESS OF BREATH #60 Ref 0 NEBULE Azithromycin (Azithromycin) 500 Mg Tab 500 MG PO DAILY Infection #3 Ref 0 TAB Cefuroxime (Ceftin) 500 Mg Tab 500 MG PO BID Infection #14 Ref 0 TAB Prednisone (Prednisone) 20 Mg Tab 20 MG PO DIRECTED 20 MG twice a day x 3 days, then 20 MG daily x 3 days Inflammation #12 Ref 0 TAB Continued Medications: Albuterol 18 GM Inh (Ventolin Hfa 18 GM Inh) 90 Mcg/Act Aer 2 PUFF INH Q4-6H PRN SHORTNESS OF BREATH #1 Ref 0 INHALER Renu Tran MD Mar 24, 2016 11:42
== END 2016-03-24 12:34 | disposition home or self-care (01) | DRG 871 ==
LOC: NEPB 16:27 → NEDA 22:43 → NEDH 03-23 03:07 → N04B 03-23 15:17
PROVIDERS: ADMIT Family Medicine; ATTEND Family Medicine
DX: A41.9 Sepsis, unspecified organism (principal); J18.9 Pneumonia, unspecified organism; J45.901 Unspecified asthma with (acute) exacerbation; R65.20 Severe sepsis without septic shock; E87.6 Hypokalemia; Z80.3 Family history of malignant neoplasm of breast; Z80.41 Family history of malignant neoplasm of ovary; Z80.49 Family history of malignant neoplasm of other genital organs; R10.11 Right upper quadrant pain
CPT/HCPCS: 71010; 71275; 74177; 80048; 80076; 81001; 83605; 83735; 84702; 85025; 87040; 87081; 87804; 87880; 94640; 94664; 94799; 96365; 96375; J0456; J0696; J1650; J2270; J2405; J2920; J3475; J7030; J7050; J7512; J7613; J7644; Q9967

== ENCOUNTER 2016-06-12 17:22 | Emergency (ER) | payer MEDICAID, OTHER ==
[~2016-06-12] VITALS: Ht 152.4 cm; Wt 46.5 kg
[~2016-06-12 17:22] MED LIST changes: +ALBU0.08 NEB; +AZIT500T2 PO; +CEFT500T3 PO; +PRED20 PO; +VENTAER INH; -Z.0.NO CURRENT MEDS
[2016-06-12 17:24] VITALS: BP 114/75; PULSE 86; RESP 16; TEMP 97.9; O2SAT 99
--- NOTE | 2016-06-12 17:46 | PD ---
HPI Chief Complaint: Abdominal Pain Time Seen by Provider: 17:46 Travel History International Travel<30 days: No Contact w/Intl Traveler<30days: No Traveled to known affect area: No History of Present Illness HPI 25-year-old female approximately 9 weeks presents to the emergency department for evaluation of lower abdominal pain for 4 days. Patient states the pain has been worsening over the last 4 days. States that the pain is aggravated after she urinates. Denies any burning with urination, hematuria, urinary frequency. States that the pain is in her lower abdomen and also on her left flank and left lower back. She complains of nausea but no vomiting. Denies any vaginal bleeding, discharge, diarrhea, constipation. States that she had her confirmed by a blood test, has yet to have an ultrasound during this . No other complaints. PFSH Past Medical History Asthma: Yes Autoimmune Disease: No Blood Disorders: No Anxiety: No Depression: No Cancer: No Cardiovascular Problems: No COPD: No Diminished Hearing: No Endocrine: No Genitourinary: No Immune Disorder: No Musculoskeletal: No Neurologic: No Psychiatric: No Reproductive: No Respiratory: Yes Sickle Cell Disease: No ?: LMP: 04/15/16 : 1 Para: 1 Miscarriage: 0 : 0 Past Surgical History Abdominal Surgery: Yes () Section: Yes Other Surgery: No Social History Alcohol Use: No Tobacco Use: Yes (3 CIGARETTES PER DAY) Substance Use: Yes (marijuana) Allergies-Medications (Allergen,Severity, Reaction): Coded Allergies: No Known Allergies (Verified , 06/12/16) Reported Meds & Prescriptions Reported Meds & Active Scripts Active Reported Plus Iron 29-1 mg ( Vit-Iron Carbonyl) 1 Tab Tab 1 Tab PO DAILY Review of Systems Except as stated in HPI: all other systems reviewed are Neg Physical Exam Narrative GENERAL: Well-nourished and well-developed pleasant female patient in no acute distress who is nontoxic appearing. SKIN: Warm and dry. HEAD: Normocephalic and atraumatic. EYES: No injection, drainage, or hyphema noted. PERRLA. EOMI. ENT: No nasal drainage noted. Oropharynx is clear. NECK: Supple and the trachea is midline. CARDIOVASCULAR: Regular rate and rhythm. RESPIRATORY: Breath sounds are equal bilaterally with no accessory muscle use, wheezing, rhonchi, or crackles. GASTROINTESTINAL: Suprapubic tenderness to palpation. Abdomen is soft and nondistended. GENITOURINARY: Normal external genitalia without lesions or erythema. Vaginal vault with thick white discharge and vaginal hernandez are erythematous. Patient experienced discomfort with insertion of speculum. Cervical os was closed. No cervical motion tenderness. Uterus nontender and nonenlarged. Bilateral adnexa nontender without masses. Performed in the presence of Roc RN. MUSCULOSKELETAL: No obvious deformities, swelling, cyanosis, or ecchymosis is present throughout the upper and lower extremities. Patient has full range of motion without any signs of neurovascular compromise. NEUROLOGICAL: Awake, alert, and oriented. Normal speech and gait. Cranial nerves are grossly intact. Data Data Last Documented VS Vital Signs Date Time Temp Pulse Resp B/P Pulse Ox O2 Delivery O2 Flow Rate FiO2 06/12/16 17:24 97.9 86 16 114/75 99 Orders Urinalysis - C+S If Indicated (06/12/16 17:28) Ed Urine Pregnancytest Poc (06/12/16 17:28) Ed Poc Ultrasound (06/12/16 ) Complete Blood Count With Diff (06/12/16 17:44) Basic Metabolic Panel (Bmp) (06/12/16 17:44) Gc And Chlamydia Pcr (06/12/16 17:44) Type And Screen (06/12/16 17:44) Wet Prep Profile (06/12/16 17:44) Iv Access Insert/Monitor (06/12/16 17:44) Ecg Monitoring (06/12/16 17:44) Us Pelvis (Ques Preg/Ectopic) (06/12/16 ) Beta Hcg (Quant/Titer) (06/12/16 18:00) Ceftriaxone Inj (Rocephin Inj) (06/12/16 20:15) Azithromycin (Zithromax) (06/12/16 20:15) Labs Laboratory Tests Test 06/12/16 06/12/16 06/12/16 18:00 18:40 19:40 White Blood Count 10.6 TH/MM3 Red Blood Count 3.42 MIL/MM3 Hemoglobin 10.1 GM/DL Hematocrit 31.1 % Mean Corpuscular Volume 90.8 FL Mean Corpuscular Hemoglobin 29.5 PG Mean Corpuscular Hemoglobin 32.5 % Concent Red Cell Distribution Width 16.9 % Platelet Count 229 TH/MM3 Mean Platelet Volume 8.6 FL Neutrophils (%) (Auto) 64.2 % Lymphocytes (%) (Auto) 22.8 % Monocytes (%) (Auto) 7.4 % Eosinophils (%) (Auto) 5.2 % Basophils (%) (Auto) 0.4 % Neutrophils # (Auto) 6.8 TH/MM3 Lymphocytes # (Auto) 2.4 TH/MM3 Monocytes # (Auto) 0.8 TH/MM3 Eosinophils # (Auto) 0.6 TH/MM3 Basophils # (Auto) 0.0 TH/MM3 CBC Comment DIFF FINAL Differential Comment Urine Color YELLOW Urine Turbidity CLEAR Urine pH 6.5 Urine Specific [place] 1.024 Urine Protein NEG mg/dL Urine Glucose (UA) NEG mg/dL Urine Ketones NEG mg/dL Urine Occult Blood NEG Urine Nitrite NEG Urine Bilirubin NEG Urine Urobilinogen LESS THAN 2.0 MG/DL Urine Leukocyte Esterase NEG Urine RBC LESS THAN 1 /hpf Urine WBC 3 /hpf Urine Squamous Epithelial 2 /hpf Cells Urine Mucus FEW /lpf Microscopic Urinalysis Comment CULT NOT INDICATED Blood Type O POSITIVE Antibody Screen NEGATIVE Clue Cells (Wet Prep) NONE SEEN Vaginal Trichomonas (Wet Prep) NONE SEEN Vaginal Yeast (Wet Prep) NONE SEEN Sodium Level 135 MEQ/L Potassium Level 3.8 MEQ/L Chloride Level 105 MEQ/L Carbon Dioxide Level 23.3 MEQ/L Anion Gap 7 MEQ/L Blood Urea Nitrogen 12 MG/DL Creatinine 0.71 MG/DL Estimat Glomerular Filtration 121 ML/MIN Rate Random Glucose 88 MG/DL Calcium Level 8.5 MG/DL Human Chorionic Gonadotropin, 390881 MIU/ML Quant MDM Medical Decision Making Medical Screen Exam Complete: Yes Emergency Medical Condition: Yes Differential Diagnosis Urinary tract infection versus pyelonephritis versus ectopic versus early Narrative Course 25-year-old female presents to the emergency department for evaluation of lower abdominal pain in the setting of early . Pain is aggravated with urination. Patient is afebrile, vital signs are stable. She has some suprapubic tenderness to palpation on exam, no peritoneal signs. No vaginal bleeding. The patient has what appears to be a yeast infection on pelvic examination. IV access is obtained, labs were drawn and sent. CBC shows mild anemia with hemoglobin of 10.1, hematocrit 21.1. BMP is unremarkable. Urinalysis shows few mucus, otherwise unremarkable. Wet prep was read as negative. Beta hCG shows 182,598. Ultrasound shows intrauterine measuring around 6 weeks with pole and gestational sac, also noted complex cystic structure per verbal read by digital technician. Patient is given Zithromax and Rocephin empirically for gonorrhea and Chlamydia coverage. She'll be prescribed clotrimazole cream for clinical vulvovaginal candidiasis. She is instructed to follow up as an outpatient with her [employer]. Patient verbalizes understanding and agreement with treatment plan. I discussed the case with my attending physician Dr. Pak who is aware of the patients history, physical examination findings, and treatment plan. Diagnosis Primary Impression: Abdominal pain during Qualified Code: O26.891 - Abdominal pain during , first trimester Additional Impression: Vaginal discharge during in first trimester Referrals: General Sc[facility] Worker Patient Instructions: Abdominal Pain in (ED), General Instructions Additional Instructions: Use cream as prescribed. Follow-up with your OBGYN. Return to the ED for any acute worsening of symptoms. Med/Other Pt SpecificInfo: Prescription(s) given Disposition: 01 DISCHARGE HOME Condition: Stable Karissa Anderson Jun 12, 2016 17:46
--- NOTE | 2016-06-12 17:46 | PD ---
Data Data Last Documented VS Vital Signs Date Time Temp Pulse Resp B/P Pulse Ox O2 Delivery O2 Flow Rate FiO2 06/12/16 17:24 97.9 86 16 114/75 99 Orders Urinalysis - C+S If Indicated (06/12/16 17:28) Ed Urine Pregnancytest Poc (06/12/16 17:28) Ed Poc Ultrasound (06/12/16 ) Complete Blood Count With Diff (06/12/16 17:44) Basic Metabolic Panel (Bmp) (06/12/16 17:44) Gc And Chlamydia Pcr (06/12/16 17:44) Type And Screen (06/12/16 17:44) Wet Prep Profile (06/12/16 17:44) Iv Access Insert/Monitor (06/12/16 17:44) Ecg Monitoring (06/12/16 17:44) Us Pelvis (Ques Preg/Ectopic) (06/12/16 ) Beta Hcg (Quant/Titer) (06/12/16 18:00) Ceftriaxone Inj (Rocephin Inj) (06/12/16 20:15) Azithromycin (Zithromax) (06/12/16 20:15) Labs Laboratory Tests Test 06/12/16 06/12/16 06/12/16 18:00 18:40 19:40 White Blood Count 10.6 TH/MM3 Red Blood Count 3.42 MIL/MM3 Hemoglobin 10.1 GM/DL Hematocrit 31.1 % Mean Corpuscular Volume 90.8 FL Mean Corpuscular Hemoglobin 29.5 PG Mean Corpuscular Hemoglobin 32.5 % Concent Red Cell Distribution Width 16.9 % Platelet Count 229 TH/MM3 Mean Platelet Volume 8.6 FL Neutrophils (%) (Auto) 64.2 % Lymphocytes (%) (Auto) 22.8 % Monocytes (%) (Auto) 7.4 % Eosinophils (%) (Auto) 5.2 % Basophils (%) (Auto) 0.4 % Neutrophils # (Auto) 6.8 TH/MM3 Lymphocytes # (Auto) 2.4 TH/MM3 Monocytes # (Auto) 0.8 TH/MM3 Eosinophils # (Auto) 0.6 TH/MM3 Basophils # (Auto) 0.0 TH/MM3 CBC Comment DIFF FINAL Differential Comment Urine Color YELLOW Urine Turbidity CLEAR Urine pH 6.5 Urine Specific [place] 1.024 Urine Protein NEG mg/dL Urine Glucose (UA) NEG mg/dL Urine Ketones NEG mg/dL Urine Occult Blood NEG Urine Nitrite NEG Urine Bilirubin NEG Urine Urobilinogen LESS THAN 2.0 MG/DL Urine Leukocyte Esterase NEG Urine RBC LESS THAN 1 /hpf Urine WBC 3 /hpf Urine Squamous Epithelial 2 /hpf Cells Urine Mucus FEW /lpf Microscopic Urinalysis Comment CULT NOT INDICATED Blood Type O POSITIVE Antibody Screen NEGATIVE Clue Cells (Wet Prep) NONE SEEN Vaginal Trichomonas (Wet Prep) NONE SEEN Vaginal Yeast (Wet Prep) NONE SEEN Chlamydia trachomatis DNA NOT DETECTED (PCR) Neisseria gonorrhoeae DNA NOT DETECTED (PCR) Sodium Level 135 MEQ/L Potassium Level 3.8 MEQ/L Chloride Level 105 MEQ/L Carbon Dioxide Level 23.3 MEQ/L Anion Gap 7 MEQ/L Blood Urea Nitrogen 12 MG/DL Creatinine 0.71 MG/DL Estimat Glomerular Filtration 121 ML/MIN Rate Random Glucose 88 MG/DL Calcium Level 8.5 MG/DL Human Chorionic Gonadotropin, [id number] MIU/ML Quant MDM Supervised Visit with SHAHRIAR: Yes Narrative Course I, Dr. Pak, have reviewed the advance practice practitioner's documentation and am in agreement, met with the patient face to face, made the diagnosis, and the medical decision making was done by me. *My assessment and Findings: Agree with findings documented by SHAHRIAR as above. Ultrasound results show Last 24 hours Impressions Pelvis Ultrasound 06/12/16 0000 Signed Impressions: Service Date/Time: Sunday, June 12, 2016 19:34 - CONCLUSION: Viable IUP with small subchorionic hemorrhage. Ria Duarte MD Discussed with the patient the findings and possibly the day represent a possible miscarriage in the future. Discussed first trimester care and expectant management. Discussed return to ED criteria. Procedures Procedure Narrative Bedside ultrasound abdomen: Transabdominal views were obtained of the uterus: Patient does have an intrauterine gestational sac with heart tones to the 130s. Patient also has a secondary lucency could be secondary gestational sac versus partial separation of placenta. I have ordered official ultrasound. Diagnosis Primary Impression: Tobacco smoking affecting Scripts Clotrimazole Vaginal (Clotrimazole 7 Vaginal)1% Cream1 Appl VAGINAL HS #45 GM Ref 0 Prov:Juna Pak MD 06/12/16 Disposition: DISCHARGE HOME Condition: Stable Juan Pak MD Jun 12, 2016 17:46
[2016-06-12 18:28] LABS: AUTOMATED NEUTROPHIL # 6.8 TH/MM3 (1.8-7.7); BASOPHIL % 0.4 % (0.0-2.0); EOSINOPHIL # 0.6 TH/MM3 (0-0.4); EOSINOPHIL % 5.2 % (0.0-4.0); HEMATOCRIT 31.1 % (35.0-46.0); HEMO FLAGS DIFF FINAL; LYMPH % 22.8 % (9.0-44.0); LYMPHOCYTE # 2.4 TH/MM3 (1.0-4.8); MEAN CELL VOLUME 90.8 FL (80.0-100.0); MEAN CORPUSCULAR HEMOGLOBIN 29.5 PG (27.0-34.0); MEAN CORPUSCULAR HGB CONC 32.5 % (32.0-36.0); MONO % 7.4 % (0.0-8.0); NEUT % 64.2 % (16.0-70.0); PLATELET COUNT 229 TH/MM3 (150-450); RED BLOOD COUNT 3.42 MIL/MM3 (4.00-5.30); RED CELL DISTRIBUTION WIDTH 16.9 % (11.6-17.2); WHITE BLOOD COUNT 10.6 TH/MM3 (4.0-11.0)
[2016-06-12] MEDS ORDERED: PREN29TA PO (18:31)
[2016-06-12 18:35] LABS: BLOOD, URINE NEG (NEG); COMMENT (UR) CULT NOT INDICATED; CULTURE IF INDICATED CULT NOT INDICATED; GLUCOSE,URINE NEG (NEG); KETONE, URINE NEG (NEG); MUCUS URINE FEW /lpf (OCC); NITRITE,URINE NEG (NEG); PH, URINE 6.5 (5.0-8.5); SQUAMOUS EPITHELIAL CELL URINE 2 /hpf (0-5); URINE COLOR YELLOW (YELLW/STRAW)
[2016-06-12 20:08] LABS: BICARBONATE 23.3 MEQ/L (21.0-32.0); POTASSIUM 3.8 MEQ/L (3.5-5.1)
[2016-06-12] MEDS ORDERED: cefTRIAXone INJ 1,000 MG in SODIUM CHLORIDE 0.9% INJ 100 ML IV ONE (20:15)
[2016-06-12] MEDS ORDERED: AZITHROMYCIN 250 MG TAB PO ONE (20:15)
[2016-06-12] MEDS ORDERED: CLOT1CRE23 VAGINAL (20:42)
--- NOTE | 2016-06-12 21:07 | RADRPT ---
EXAM DATE/TIME: 06/12/2016 19:34 [facility] COMPARISON: No previous studies available for comparison. INDICATIONS : Pelvic pain. LAB(S): Beta-hC,598 MEDICAL HISTORY : . Asthma. Dyspnea. Substance use. SURGICAL HISTORY : section. ENCOUNTER: Initial ACUITY: 4-6 days PAIN SCORE: 6/10 LOCATION: Bilateral pelvis MEASUREMENTS: UTERUS: 10.8 x 7.4 x 6.1 cm ENDOMETRIAL STRIPE: >20 mm RIGHT OVARY: 2.1 x 1.6 x 1.6 cm LEFT OVARY: 3.5 x 3.0 x 2.2 cm FREE FLUID: No CROWN RUMP LENGTH: 1.46 cm = 7 WKS 6 DAYS FHR: 138 BPM FINDINGS: Intrauterine gestational sac is present with crown-rump length measures 1.4 cm (7 weeks and 6 days) a nd a heartbeat is present at 138 beats per minute. Small approximately 1.3 cm subchorionic hemo rrhage is present. There is an approximate 9 mm complex cystic area in the right made uterus nonspeci fic of uncertain etiology. There is no free fluid or adnexal mass. CONCLUSION: Viable IUP with small subchorionic hemorrhage. Ria Duarte MD on June 12, 2016 at 21:03 Board Certified Radiologist. This report was verified electronically.
[2016-06-12 21:50] LABS: CHLAMYDIA PCR NOT DETECTED (NOT DETECT); NEISSERIA PCR NOT DETECTED (NOT DETECT)
== END 2016-06-12 21:43 | disposition home or self-care (01) ==
LOC: NEPD 17:22
DX: O26.891 Other specified pregnancy related conditions, first trimester (principal); N89.8 Other specified noninflammatory disorders of vagina; R10.30 Lower abdominal pain, unspecified; Z3A.09 9 weeks gestation of pregnancy
CPT/HCPCS: 76700; 80048; 81001; 84702; 84703; 85025; 86850; 86900; 86901; 87210; 87491; 87591; 96365; 99284; J0696

== ENCOUNTER 2016-08-29 22:33 | Emergency (ER) | payer MEDICAID ==
[~2016-08-29 22:33] MED LIST changes: -ALBU0.08 NEB; -AZIT500T2 PO; -CEFT500T3 PO; +CLOT1CRE23 VAGINAL; -PRED20 PO; +PREN29TA PO; -VENTAER INH
--- NOTE | 2016-08-29 23:22 | PD ---
HPI Chief Complaint Fever, cough, body aches Date Seen: Aug 29, 2016 Time Seen: 23:18 Travel History International Travel<30 Days: No Contact w/Intl Traveler<30Days: No Known Affected Area: No History of Present Illness HPI 25-year-old who is at 19 weeks 1 day comes in complaining of bodyaches and cough that began approximately 2 days ago, maximum fever of 100.8 taken orally. Cough is nonproductive. Denies sore throat, denies chest pain. No abdominal pain but she does have some suprapubic discomfort. She sees Sandra Gonzalez and has asthma which is well controlled on albuterol Para: 1 : 2 History Past Medical History Narrative Medical Asthma Obstetric History Obstetric History section Past Surgical History Narrative Surgical Family History Family History: Negative Social History Alcohol Use: No Tobacco Use: No Substance Abuse: No Allergies-Medications (Allergen,Severity, Reaction): Coded Allergies: No Known Allergies (Verified , 06/12/16) Home Meds Active Scripts Clotrimazole Vaginal (Clotrimazole 7 Vaginal)1% Cream1 Appl VAGINAL HS #45 GM Ref 0 Prov:Juan Pak MD 06/12/16 Reported Medications Vit-Iron Carbonyl ( Plus Iron 29-1 mg)1 Tab Tab1 Tab PO DAILY Ref 0 06/12/16 Review of Systems Except as stated in HPI: all other systems reviewed are Neg Physical Exam Narrative GENERAL: Well-nourished, well-developed patient. SKIN: Warm and dry. HEAD: Normocephalic and atraumatic. EYES: No scleral icterus. No injection or drainage. ENT: No nasal drainage noted. Mucous membranes pink. Airway patent. NECK: Supple, trachea midline. No JVD. CARDIOVASCULAR: Regular rate and rhythm without murmurs, gallops, or rubs. RESPIRATORY: Breath sounds equal bilaterally. No accessory muscle use. BREASTS: Bilateral exam showed no masses , no retractions, no nipple discharge. ABDOMEN/GI: Abdomen soft, non-tender, bowel sounds present, no rebound, no guarding Gravid to [20-] weeks size Fundal Height: [-] GENITOURINARY: Deferred External Genitalia: intact and normal in appearance BUS glands: [-] Cervix: [-] Dilatation: [-] Effacement: [-] Station: [-] Presentation: [-] Membranes: [intact or ruptured] Uterine Contractions: [-] No contractions noted FHT's: Category: 145 Baseline: [-] Reactive: [-] Variability: [-] Decels: [-] EXTREMITIES: No cyanosis or edema. BACK: Nontender without obvious deformity. No CVA tenderness. NEUROLOGICAL: Awake and alert. Motor and sensory grossly within normal limits. Five out of 5 muscle strength in all muscle groups. Normal speech. Data Data Orders Vital Signs (Adult) .ON ADMISSION (08/29/16 23:16) ^ Labor Status (08/29/16 23:16) Urinalysis - C+S If Indicated (08/29/16 23:16) Diet Liquid (08/30/16 Breakfast) Cbc No Diff, Includes Plts (08/29/16 23:16) Basic Metabolic Panel (Bmp) (08/29/16 23:16) Labs Laboratory Tests Test 08/29/16 23:15 White Blood Count 10.7 TH/MM3 Red Blood Count 2.80 MIL/MM3 Hemoglobin 8.4 GM/DL Hematocrit 25.0 % Mean Corpuscular Volume 89.3 FL Mean Corpuscular Hemoglobin 29.8 PG Mean Corpuscular Hemoglobin 33.4 % Concent Red Cell Distribution Width 16.3 % Platelet Count 209 TH/MM3 Mean Platelet Volume 7.1 FL Urine Color YELLOW Urine Turbidity CLEAR Urine pH 6.0 Urine Specific [place] 1.029 Urine Protein TRACE mg/dL Urine Glucose (UA) NEG mg/dL Urine Ketones NEG mg/dL Urine Occult Blood NEG Urine Nitrite NEG Urine Bilirubin NEG Urine Urobilinogen 8.0 MG/DL Urine Leukocyte Esterase NEG Urine RBC 1 /hpf Urine WBC 3 /hpf Urine Squamous Epithelial 2 /hpf Cells Urine Hyaline Casts 1 /lpf Urine Mucus FEW /lpf Microscopic Urinalysis Comment CULT NOT INDICATED Sodium Level 137 MEQ/L Potassium Level 3.8 MEQ/L Chloride Level 104 MEQ/L Carbon Dioxide Level 23.3 MEQ/L Anion Gap 10 MEQ/L Blood Urea Nitrogen 7 MG/DL Creatinine 0.57 MG/DL Estimat Glomerular Filtration 156 ML/MIN Rate Random Glucose 87 MG/DL Calcium Level 8.3 MG/DL [facility] Medical Record Reviewed: Yes Plan 25-year-old at 19 weeks and 1 day with upper respiratory infection and asthma, given her asthma and fever we'll treat her with a Z-Pool although I do think this is most likely bilateral in nature Anemia would recommend the patient includes iron in her regimen with a recheck on her CBC at 28 weeks if patient remains at this level of anemia she would be best served with an iron infusion prior to delivery Diagnosis Diagnosis: Primary Impression: 19 weeks gestation of Additional Impressions: Bronchitis Asthma affecting , antepartum Anemia affecting in second trimester Disposition: DISCHARGE HOME Scripts Azithromycin (Zithromax Z-Pool)250 Mg [id number] Mg PO DIRECTED #1 DSPK Ref 0 500 MG (2 tabs) day 1, then 1 tab days 2-5. Prov:Kimberly Rudd MD 08/30/16 Kimberly Rudd MD Aug 29, 2016 23:22
[2016-08-29 23:24] LABS: MEAN CELL VOLUME 89.3 FL (80.0-100.0); MEAN CORPUSCULAR HEMOGLOBIN 29.8 PG (27.0-34.0); MEAN CORPUSCULAR HGB CONC 33.4 % (32.0-36.0); PLATELET COUNT 209 TH/MM3 (150-450); RED CELL DISTRIBUTION WIDTH 16.3 % (11.6-17.2); REVIEW FLAG FINAL; WHITE BLOOD COUNT 10.7 TH/MM3 (4.0-11.0)
[2016-08-29 23:43] LABS: BLOOD, URINE NEG (NEG); COMMENT (UR) CULT NOT INDICATED; CULTURE IF INDICATED CULT NOT INDICATED; GLUCOSE,URINE NEG (NEG); HYALINE CAST, URINE 1 /lpf (RARE); KETONE, URINE NEG (NEG); MUCUS URINE FEW /lpf (OCC); NITRITE,URINE NEG (NEG); SQUAMOUS EPITHELIAL CELL URINE 2 /hpf (0-5); URINE COLOR YELLOW (YELLW/STRAW)
[2016-08-29 23:52] LABS: BICARBONATE 23.3 MEQ/L (21.0-32.0); POTASSIUM 3.8 MEQ/L (3.5-5.1)
[2016-08-30] MEDS ORDERED: ZITHTAB PO (00:05)
== END 2016-08-30 00:07 | disposition home or self-care (01) ==
LOC: HOBED 22:33
DX: O99.512 Diseases of the respiratory system complicating pregnancy, second trimester (principal); O99.012 Anemia complicating pregnancy, second trimester; J45.909 Unspecified asthma, uncomplicated; Z3A.19 19 weeks gestation of pregnancy
CPT/HCPCS: 80048; 81001; 85027; 99283